=== PATIENT | male | born 1955 | race Caucasian/White ===

== ENCOUNTER 2016-10-16 19:29 | Emergency (ER) | payer BC ==
[~2016-10-16 19:29] MED LIST: ACETAMINOPHEN; ACIPHEX20 MG; ATENOLOL25 MG PO; LIPITOR PO; LISINOPRIL20 MG PO; PANTOPRAZOLE SO40 MG PO; TRIPLIX PO; ZOVIRAX200 MG PO
== END 2016-10-16 20:10 | disposition home or self-care (01) ==
LOC: CFTX 19:29
DX: S51.852A Open bite of left forearm, initial encounter (principal); I10 Essential (primary) hypertension; Z23 Encounter for immunization; W54.0XXA Bitten by dog, initial encounter; Y92.9 Unspecified place or not applicable
CPT/HCPCS: 90471; 90715; 99283